=== PATIENT | female | born 2000 | race African-American/Black ===

== ENCOUNTER 2025-01-23 14:54 | Emergency (ER) | payer SELFPAY ==
[2025-01-23] MEDS ORDERED: Ibuprofen 200 MG TAB ONE (15:42)
== END 2025-01-23 16:18 | disposition home or self-care (01) ==
LOC: CSHERS 14:54
DX: S92.532A Displaced fracture of distal phalanx of left lesser toe(s), initial encounter for closed fracture (principal); W22.8XXA Striking against or struck by other objects, initial encounter
CPT/HCPCS: 99283